=== PATIENT | female | born 1995 | race American Indian/Alaskan Native ===

== ENCOUNTER 2016-07-24 12:41 | Emergency (ER) | payer OTHER ==
[2016-07-24] MEDS ORDERED: TYLENOL PO ONE (19:40)
--- NOTE | 2016-07-24 20:37 | Emergency Department Report ---
Entered by NAVYA KRISHNAN, acting as scribe for HOLLIS TRONCOSO PA. - General Chief Complaint: Upper Respiratory Infection Stated Complaint: COLD Time Seen by Provider: 07/24/16 19:03 Source: patient Mode of arrival: Ambulatory Limitations: No Limitations - History of Present Illness Initial Comments: 21 year old female presents to the ED for evaluation of cold symptoms since yesterday. She reports subjective fever, chills, cough, nasal congestion, runny nose, and headache. She took Motrin for symptoms with mild relief; last dose was at 04:00 this morning. She denies nausea, vomiting, diarrhea, sore throat and known sick contacts. MD Complaint: fever (subjective), cough, rhinorrhea, nasal congestion Onset/Timin -: days(s) Improves With: NSAID (Motrin, mildly. Last does at 04:00) Worsens With: nothing Associated Symptoms: fever (subjective), chills, myalgias, rhinorrhea, nasal congestion, cough. denies: sore throat, chest pain, abdominal pain, nausea, vomiting, diarrhea - Related Data Previous Rx's Medication Instructions Recorded Last Taken Type Fluticasone [Flonase] 1 spray NS QDAY #1 bottle 07/24/16 Unknown Rx Loratadine [Claritin] 10 mg PO DAILY #30 tablet 07/24/16 Unknown Rx Allergies Allergy/AdvReac Type Severity Reaction Status Date / Time No Known Allergies Allergy Unverified 07/24/16 12:54 ED Review of Systems Comment: All other systems reviewed and negative Constitutional: chills, fever (subjective) ENT: congestion, other (rhinorrhea). denies: ear pain, throat pain Respiratory: cough. denies: shortness of breath Cardiovascular: denies: chest pain Gastrointestinal: denies: abdominal pain, nausea, vomiting, diarrhea Skin: denies: rash Neurological: headache ED Past Medical Hx - Past Medical History Previous Medical History?: No - Surgical History Past Surgical History?: No - Social History Smoking Status: Never Smoker Substance Use Type: Alcohol - Medications Home Medications: Home Medications Medication Instructions Recorded Confirmed Last Taken Type Fluticasone [Flonase] 1 spray NS QDAY #1 bottle 07/24/16 Unknown Rx Loratadine [Claritin] 10 mg PO DAILY #30 tablet 07/24/16 Unknown Rx ED Physical Exam - General Limitations: No Limitations General appearance: alert, in no apparent distress, other (Patient is afebrile ( T= 98.6)) - Head Head exam: Present: atraumatic, normocephalic - Eye Eye exam: Present: PERRL, EOMI - ENT ENT exam: Present: mucous membranes moist, TM's normal bilaterally, other ( nasal exudates present) - Expanded ENT Exam Expanded Throat exam: Positive: tonsillar erythema. Negative: tonsillomegaly, tonsillar exudate - Neck Neck exam: Present: normal inspection, full ROM (supple). Absent: lymphadenopathy, thyromegaly - Respiratory Respiratory exam: Present: normal lung sounds bilaterally. Absent: respiratory distress, wheezes, rales, rhonchi, chest wall tenderness - Cardiovascular Cardiovascular Exam: Present: regular rate, normal rhythm, normal heart sounds. Absent: systolic murmur, diastolic murmur, rubs, gallop - GI/Abdominal GI/Abdominal exam: Present: soft. Absent: distended, tenderness, guarding, rebound - Neurological Exam Neurological exam: Present: alert, oriented X3 - Psychiatric Psychiatric exam: Present: normal affect, normal mood - Skin Skin exam: Present: warm, dry, intact. Absent: rash ED Course Vital Signs 07/24/16 12:49 Temperature 100 F H Pulse Rate 114 H Respiratory 20 Rate Blood Pressure 105/63 O2 Sat by Pulse 99 Oximetry ED Disposition Clinical Impression: Upper respiratory infection, viral Disposition: DISCHARGED TO HOME OR SELFCARE Is pt being admited?: No Does the pt Need Aspirin: No Condition: Stable Instructions: Cold Symptoms (ED) Additional Instructions: Please take medication as prescribed follow with her primary care provider. He can take Tylenol or Motrin for pain and fever. Prescriptions: Fluticasone [Flonase] 1 spray NS QDAY #1 bottle Loratadine [Claritin] 10 mg PO DAILY #30 tablet Referrals: PRIMARY CARE,MD [Primary Care Provider] - 3-5 Days Forms: Work/School Release Form(ED) This documentation as recorded by the ARIELLA sanchez REBEKAH,accurately reflects the service I personally performed and the decisions made by me,HOLLIS TRONCOSO PA.
[2016-07-24 21:27] VITALS: BP 113/76
== END 2016-07-24 20:30 | disposition home or self-care (01) ==
LOC: ED 12:41
DX: J06.9 Acute upper respiratory infection, unspecified (principal)
CPT/HCPCS: 87400; 99282